=== PATIENT | male | born 1940 | race Caucasian/White ===

== ENCOUNTER 2020-05-22 09:44 | Observation (INO) | payer MEDICARE, OTHER ==
[~2020-05-22] VITALS: Ht 180.3 cm; Wt 89.0 kg
[~2020-05-22 09:44] MED LIST: ASPIRIN EC81 MG PO; CRESTOR40 MG NG; LISINOPRIL-HCT1 EACH PO; PROTONIX40 MG PO; TAMSULOSIN HCL0.4 MG PO; ZOFRAN ODT8 MG PO
--- NOTE | 2020-05-22 14:50 | NUR ---
PT ARRIVED TO ROOM 113 VIA ER BED AND TRANSFERS INDEPENDANTLY TO MEDICAL SURGICAL BED, DENIES FEELING LIGHTHEADED, DIZZY, SOB, PAIN OR OTHER SYMPTOMS. "I FEEL A WHOLE LOT BETTER THAN I DID EARLIER".
--- NOTE | 2020-05-22 16:44 | NUR ---
pt sitting up in chair alert and oriented watching tv and denies needs or concerns. Call light and h2o in reach. Pt states hes already ordered his dinner as well as breakfast for tomorrow.
--- NOTE | 2020-05-22 17:29 | NUR ---
PATIENT IS IN CHAIR EATING DINNER. VIATLS DONE. CALL LIGHT IIN REACH. NO OTHER NEEDS AT THIS TIME.
--- NOTE | 2020-05-22 17:46 | NUR ---
PATIENT IS RESTING IN CHAIR. FRESH WATER AND MARGIE TWIST GIVEN. CALL LIGHT IN REACH. NO OTHER NEEDS AT THIS TIME.
--- NOTE | 2020-05-22 18:10 | NUR ---
PT SITTING UP IN CHAIR ALERT AND ORIENTED EATING DINNER AND TALKING ON CELL PHONE. CALL LIGHT AND H2O IN REACH. PT DENIES NEEDS OR CONCERNS.
--- NOTE | 2020-05-22 19:00 | NUR ---
RECEIVED REPORT FROM NOLA DUNCAN. pt RESTING IN CHAIR. NO REQUESTS AT THIS TIME. CALL LIGHT WITHIN REACH. WHITEBOARD UPDATED.
--- NOTE | 2020-05-22 20:46 | EKG ---
[facility] [address] [place], [place] [address] Signed Sinus bradycardia with 1st degree AV block Cannot rule out Anterior infarct , age undetermined Abnormal ECG No previous ECGs available Confirmed by MARVA HUFFMAN DO ([id number]) on 05/22/2020 8:46:16 PM Electronically Signed By: MARVA HUFFMAN DO 05/22/206 PATIENT NAME: DYANHEIDY Alysha Electrocardiogram DATE OF : 38 PHYSICIAN: MARVA HUFFMAN DO REPORT #: [id number] REPORT IS CONFIDENTIAL AND NOT TO BE RELEASED WITHOUT AUTHORIZATION
--- NOTE | 2020-05-22 21:00 | NUR ---
IN TO DO ASSESSMENT. pt RESTING IN CHAIR. DENIES BEING LIGHTHEADED OR DIZZY. ASSESSMENT DONE. MEDICATIONS GIVEN (SEE MAR). DISCUSSED PLAN FOR THE SHIFT. ALL QUESTIONS ANSWERED. PROVIDED FRESH WATER. NO FURTHER REQUESTS AT THIS TIME. CALL LIGHT WITHIN REACH.
--- NOTE | 2020-05-22 22:37 | NUR ---
ROUNDED ON pt. RESTING IN BED WITH EYES CLOSED, RESPIRATIONS REGULAR AND UNLABORED. CALL LIGHT WITHIN REACH.
--- NOTE | 2020-05-23 00:34 | NUR ---
ROUNDED ON pt. RESTING WITH EYES CLOSED, RESPIRATIONS REGULAR AND UNLABORED. HR 50'S CALL LIGHT WITHIN REACH.
--- NOTE | 2020-05-23 02:10 | NUR ---
ROUNDED CHARGE. IN ROOM WITH RN BRITT. VSS. ORTHOSTATIC VS COMPLETE. URINAL EMPTIED. PRIMARY RN REMAINS IN ROOM.
--- NOTE | 2020-05-23 02:15 | NUR ---
IN TO DO VITALS. ORTHOSTATICS DONE. pt DENIED LIGHTHEADEDNESS OR DIZZYNESS. ASSESSMENT DONE. PROVIDED FRESH WATER. NO FURTHER REQUESTS AT THIS TIME. CALL LIGHT WITHIN REACH.
--- NOTE | 2020-05-23 04:20 | NUR ---
ROUNDED ON pt. RESTING IN BED. RESPIRATIONS REGULAR AND UNLABORED. CALL LIGHT WITHIN REACH.
--- NOTE | 2020-05-23 05:36 | NUR ---
pt REPORTED A BM. VITALS AND I&O RECORDED. NO REQUESTS AT THIS TIME. SITTING IN BED WITH CALL LIGHT WITHIN REACH.
--- NOTE | 2020-05-23 06:35 | NUR ---
pt RESTED MOST OF SHIFT. TELE 8. NO SYNCOPE, DIZZYNESS, OR LIGHTHEADEDNESS REPORTED. pt INDEPENDENT IN ROOM. SL. VOIDING QS. USES CALL LIGHT APPROPRIATELY.
--- NOTE | 2020-05-23 08:24 | NUR ---
Pt sitting up in chair alert and oreinted. Pt voiced readiness to discharge this morning. am meds administered and assessment completed. Call light and h2o in reach. No further needs or concerns voiced.
--- NOTE | 2020-05-23 08:28 | PATH ---
[facility] [address] [place], [place] [address] Signed ORDERING PHYSICIAN: Maynor Egan MD PATIENT NAME: HEIDY ZAIDI GENDER: M : 1940 Prior History: No cases found. SPECIMEN(S): MOLECULAR PATHOLOGY RESULTS: SARS-CoV-2 Not Detected ADDITIONAL NOTES.: The [employer] Fusion SARS-CoV-2 Assay is a multiplex real-time PCR (RT-PCR) in vitro diagnostic test intended for the qualitative detection of RNA from SARS-CoV-2 from individuals who meet COVID-19 clinical and/or epidemiological criteria. In general, SARS-CoV-2 RNA can be detected during the acute phase of infection. Positive results indicate the presence of SARS-CoV-2 RNA. Clinical correlation with patient history and other diagnostic information is necessary to determine patient infection status. Positive results do not rule out bacterial infection or co-infection with other viruses. Negative results do not preclude SARS-CoV-2 infection and should not be used as the sole basis for patient management decisions. Negative results must be combined with other clinical observations, patient history, and epidemiological information. The [employer] Fusion SARS-CoV-2 Assay is not yet approved or cleared by the [place] FDA. When there are no FDA-approved or cleared tests available, and other criteria are met, FDA can make tests available under an emergency access mechanism called an Emergency Use Authorization (EUA). The EUA for this test is supported by the [place] of Health and Human Service's (HHS's) declaration that circumstances exist to justify the emergency use of in vitro diagnostics for the detection and/or diagnosis of the virus that causes COVID-19. This EUA will remain in effect for the duration of the COVID-19 declaration justifying emergency of IVDs, unless it is terminated or revoked by FDA, after which the test may no longer be used. The [employer] Fusion SARS-CoV-2 Assay is for use only under EUA PATIENT NAME: HEIDY ZAIDI Alysha PATHOLOGY DATE OF : 38 REPORT #: [id number] PHYSICIAN: JOHNSON PATHOLOGY PCP: NO PRIMARY CARE PHYSICIAN REPORT IS CONFIDENTIAL AND NOT TO BE RELEASED WITHOUT AUTHORIZATION [facility] [address] [place] [id number] Signed in [place] laboratories certified under the Clinical Laboratory Improvement Amendments of 1988 (CLIA) to perform high complexity tests. [facility] is certified under CLIA to perform high complexity clinical laboratory testing. PERFORMING LABORATORY.: Molecular testing was performed by [facility] [address] [place], [place] [address] [address] (Welfare Director: Fawad Hobson D.O.; CLIA#: [id number]) Diagnostician: System Interface Pathologist Electronically Signed 05/23/2020 Copies: ~ PATIENT NAME: MARY ZAIDISAROJ Encarnacion PATHOLOGY DATE OF : 38 REPORT #: [id number] PHYSICIAN: JOHNSON CLIFTON PCP: NO PRIMARY CARE PHYSICIAN REPORT IS CONFIDENTIAL AND NOT TO BE RELEASED WITHOUT AUTHORIZATION
== END 2020-05-23 11:08 | disposition home or self-care (01) ==
LOC: ED 09:44 → MS 09:46
PROVIDERS: ADMIT Student in an Organized Health Care Education/Training Program; ATTEND Student in an Organized Health Care Education/Training Program
DX: R55 Syncope and collapse (principal); R00.1 Bradycardia, unspecified; I10 Essential (primary) hypertension; K21.9 Gastro-esophageal reflux disease without esophagitis; N40.0 Benign prostatic hyperplasia without lower urinary tract symptoms; E78.5 Hyperlipidemia, unspecified; Z20.828 Contact with and (suspected) exposure to other viral communicable diseases; Z23 Encounter for immunization; Z88.8 Allergy status to other drugs, medicaments and biological substances; Z79.899 Other long term (current) drug therapy; Z79.82 Long term (current) use of aspirin
CPT/HCPCS: 36415; 70450; 71045; 80048; 80053; 81001; 83735; 84484; 85025; 90662; 93005; 93010; 93306; 96360; 99285-25; C9803; G0008; G0378; J7030; U0003

== ENCOUNTER 2023-05-30 19:23 | Emergency (ER) | payer OTHER ==
[~2023-05-30] VITALS: Ht 180.3 cm; Wt 88.9 kg
[2023-05-30] MEDS ORDERED: SERTRALINE HCL50 MG PO (19:40)
[2023-05-30 20:06] LABS: PH, VENOUS 7.384 (7.31-7.41)
[2023-05-30 20:07] LABS: BASOPHILS 0.6 % (0-2); EOSINOPHILS 0.5 % (0-6); HEMATOCRIT 38.3 % (35.0-50.0); LYMPHOCYTES 6.2 % (24-44); MCH 31.3 (27-36); MCHC 33.9 g/dl (30-36); MCV 92.3 fl (81-99); NEUTROPHILS 86.7 % (39-80); PLATELET COUNT 174 K/uL (140-440); RBC 4.15 M/ul (4.3-5.7); RDW 14.2 (10.5-15.0)
[2023-05-30 20:36] LABS: ALBUMIN 3.7 g/dL (3.4-5.0); ALBUMIN/GLOBULIN RATIO 1.16 (1.1-2.4); ANION GAP 11.7 (7-21); BILIRUBIN, TOTAL 0.3 ng/dL (0.2-1.0); BUN/CREATININE RATIO 14.18 (6.0-28.6); CALCIUM 8.6 mg/dL (8.5-10.1); CREATININE, SERUM 1.41 mg/dL (0.70-1.30); POTASSIUM 3.7 mmol/L (3.5-5.1); PROTEIN, TOTAL 6.9 g/dL (6.4-8.2)
[2023-05-30] MEDS ORDERED: PAXLOVID 150-11 EACH PO (21:13)
[2023-05-30 21:47] VITALS: BP 179/79
== END 2023-05-30 21:47 | disposition home or self-care (01) ==
LOC: ED 19:23
PROVIDERS: Family Medicine
DX: U07.1 COVID-19 (principal); I10 Essential (primary) hypertension; F03.90 Unspecified dementia, unspecified severity, without behavioral disturbance, psychotic disturbance, mood disturbance, and anxiety; Z87.891 Personal history of nicotine dependence; Z88.4 Allergy status to anesthetic agent; Z79.899 Other long term (current) drug therapy; Z79.82 Long term (current) use of aspirin
CPT/HCPCS: 36415; 71045; 80053; 82803; 83880; 85025; 85379